=== PATIENT | male | born 1985 | race African-American/Black ===

== ENCOUNTER 2020-02-18 11:51 | Emergency (ER) | payer OTHER, SELFPAY ==
[2020-02-18] MEDS ORDERED: cefTRIAXone\\ROCEPHIN 1 GM VIAL ONE (13:45)
[2020-02-18] MEDS ORDERED: Azithromycin 250 MG TAB ONE (13:45)
[2020-02-18] MEDS ORDERED: cefTRIAXone\\ROCEPHIN 500 MG VIAL ONE (13:48)
[2020-02-18] MEDS ORDERED: Azithromycin 250 MG TAB PO SCH (14:15)
[2020-02-19 21:59] LABS: Chlam.trachomatis by PCR,Urine Not Detected (NotDetected)
== END 2020-02-18 14:14 | disposition home or self-care (01) ==
LOC: BURERS 11:51
DX: Z20.2 Contact with and (suspected) exposure to infections with a predominantly sexual mode of transmission (principal); J45.909 Unspecified asthma, uncomplicated; F41.9 Anxiety disorder, unspecified
CPT/HCPCS: 87491; 87591; 96372; 99281; J0696